=== PATIENT | female | born 1995 | race Caucasian/White ===

== ENCOUNTER 2024-12-17 23:48 | Emergency (ER) | payer MEDICAID, OTHER ==
[2024-12-18 01:45] LABS: #Basophils 0.05 10x3/uL (0.0-0.2); #Eosinophils 0.15 10x3/uL (0.0-0.5); #Monocytes 0.58 10x3/uL (0.0-1.1); #Neutrophils 6.56 10x3/uL (1.5-8.4); %Basophils 0.5 % (0.0-2.0); %Eosinophils 1.5 % (0.0-6.0); %Lymphocytes 24.6 % (18.0-47.0); %Monocytes 5.9 % (0.0-10.0); %Neutrophils 67.2 % (40.0-75.0); Hematocrit 39.7 % (34.9-44.5); Hemoglobin 13.7 g/dL (12.0-15.5); Mean Corpuscular Hemoglobin 29.5 pg (27.0-33.0); Mean Corpuscular Volume 85.4 fL (81.6-98.3); Platelet Count 283 10x3/uL (150-450); Red Blood Cell (RBC) Count 4.65 10x6/uL (3.90-5.03); White Blood Cell (WBC) Count 9.77 10x3/uL (3.5-10.5)
[2024-12-18 01:54] LABS: ALT (SGPT) 41 U/L (Less than 34); AST (SGOT) 34 U/L (11-34); Albumin 4.1 g/dL (3.1-4.5); Alkaline Phosphatase 69 U/L (40-110); Anion Gap 13 mmol/L (10-20); BUN (Urea Nitrogen) 13 mg/dL (7.0-18.7); Bilirubin, Total 0.3 mg/dL (0.3-1.2); Calc. Creatinine Clearance 0 mL/min (70-130); Calcium 8.8 mg/dL (7.8-10.44); Carbon Dioxide 24 mmol/L (22-29); Chloride 107 mmol/L (98-107); Globulin 3.2 g/dL (2.4-3.5); Glucose 63 mg/dL (70-105); Potassium 4.0 mmol/L (3.5-5.1); Sodium 140 mmol/L (136-145)
[2024-12-18 01:59] LABS: Troponin I Less than 0.010 ng/mL (< 0.028)
== END 2024-12-18 03:30 | disposition home or self-care (01) ==
LOC: CSHERS 23:48
DX: R07.89 Other chest pain (principal)
CPT/HCPCS: 71045; 80053; 83880; 84484; 85025; 93005

== ENCOUNTER 2025-02-05 18:45 | Observation (INO) | payer MEDICAID, OTHER ==
[2025-02-05 20:19] LABS: ALT (SGPT) 38 U/L (Less than 34); AST (SGOT) 32 U/L (11-34); Albumin 3.7 g/dL (3.1-4.5); Alkaline Phosphatase 64 U/L (40-110); Anion Gap 11 mmol/L (10-20); BUN (Urea Nitrogen) 14 mg/dL (7.0-18.7); Bilirubin, Total 0.4 mg/dL (0.3-1.2); Calc. Creatinine Clearance 0 mL/min (70-130); Calcium 8.6 mg/dL (7.8-10.44); Carbon Dioxide 24 mmol/L (22-29); Chloride 108 mmol/L (98-107); Globulin 3.0 g/dL (2.4-3.5); Glucose 86 mg/dL (70-105); Potassium 4.1 mmol/L (3.5-5.1); Sodium 139 mmol/L (136-145)
[2025-02-05 20:20] LABS: BHCG - Serum Negative (NEGATIVE); Pregs Control Background? CLEAR/WHITE (CLR/WHITE); Pregs Control Bar Appear? YES (CONTROL BAR)
[2025-02-05 20:23] LABS: Troponin I Less than 0.010 ng/mL (< 0.028)
[2025-02-05 20:24] LABS: #Basophils Less than 0.03 10x3/uL (0.0-0.2); #Eosinophils 0.17 10x3/uL (0.0-0.5); #Monocytes 0.51 10x3/uL (0.0-1.1); #Neutrophils 4.21 10x3/uL (1.5-8.4); %Basophils 0.3 % (0.0-2.0); %Eosinophils 2.2 % (0.0-6.0); %Lymphocytes 35.7 % (18.0-47.0); %Monocytes 6.6 % (0.0-10.0); %Neutrophils 54.9 % (40.0-75.0); Hematocrit 38.1 % (34.9-44.5); Hemoglobin 12.7 g/dL (12.0-15.5); Mean Corpuscular Hemoglobin 28.8 pg (27.0-33.0); Mean Corpuscular Volume 86.4 fL (81.6-98.3); Platelet Count 243 10x3/uL (150-450); Red Blood Cell (RBC) Count 4.41 10x6/uL (3.90-5.03); White Blood Cell (WBC) Count 7.67 10x3/uL (3.5-10.5)
[2025-02-05 20:24] LABS: Magnesium 1.7 mg/dL (1.6-2.6)
[2025-02-05] MEDS ORDERED: Senokot S 8.6-50 MG TAB PO PRN (23:58)
[2025-02-05] MEDS ORDERED: Calcium Carbonate 500 MG ChewTAB PO PRN (23:58)
[2025-02-05] MEDS ORDERED: Acetaminophen 325 MG TAB PO PRN (23:58)
[2025-02-05] MEDS ORDERED: Ondansetron PF 4 MG/2 ML Vial IVP PRN (23:58)
[2025-02-05] MEDS ORDERED: Guaifenesin DM 100-10/5 ML UDCUP PO PRN (23:58)
[2025-02-06 00:59] VITALS: BMI 41.4
[2025-02-06 06:37] LABS: Platelet Count 235.0 10x3/uL (150-450)
[2025-02-06 06:48] LABS: D-Dimer Test 0.47 mcg/mL (0.19-0.50); INR-International Normal Ratio 0.9; PTT 29.1 sec (22.0-33.0); Prothrombin Time 10.4 sec (9.5-12.1)
[2025-02-06 06:51] LABS: D-Dimer Test 0.48 mcg/mL (0.19-0.50); Fibrinogen 286.0 mg/dL (220-504); INR-International Normal Ratio 0.9; PTT 29.2 sec (22.0-33.0); Prothrombin Time 10.4 sec (9.5-12.1)
[2025-02-06 06:52] LABS: Cardiac Risk 4.3 (Less than 4.5); Cholesterol 111.0 mg/dl (< 200 Desired); HDL Cholesterol 26.0 mg/dL (>60 Neg Risk); LDL Cholesterol, Calculated 35.0 mg/dL; Triglycerides 250.0 mg/dL (Less than 150)
[2025-02-06 06:58] LABS: Troponin I Less than 0.010 ng/mL (< 0.028)
[2025-02-06 07:13] LABS: Thyroid Stimulating Hormone 2.4559 uIU/mL (0.35-4.94)
[2025-02-06] MEDS: Aspirin 81 mg Enteric Coated Tablet PO SCH (09:24)
[2025-02-06] MEDS: Enoxaparin 40 MG (0.4 mL) SYRINGE SC SCH (09:24)
[2025-02-06 13:57] LABS: Vitamin B12 317.0 pg/mL (211-911)
[2025-02-06 17:45] VITALS: BP 144/72; TEMP 98.6
[2025-02-06] MEDS ORDERED: Rosuvastatin 10 MG TAB PO SCH (21:00)
[2025-02-09 12:11] LABS: EliA APS New Method **** NEW METHOD ****; beta-2-Glycoprotein I IgA Ab 2.6 U/mL (<7 Negative); beta-2-Glycoprotein I IgG Ab 1.4 U/mL (<7 Negative); beta-2-Glycoprotein I IgM Abs Less than 2.4 U/mL (<7 Negative)
== END 2025-02-06 18:10 | disposition home or self-care (01) ==
LOC: CSHERS 18:45 → CSHTELE 23:53
PROVIDERS: ADMIT Student in an Organized Health Care Education/Training Program; ATTEND Student in an Organized Health Care Education/Training Program
DX: G45.9 Transient cerebral ischemic attack, unspecified (principal); L40.9 Psoriasis, unspecified; E66.01 Morbid (severe) obesity due to excess calories; Z68.41 Body mass index [BMI] 40.0-44.9, adult; Z79.82 Long term (current) use of aspirin
CPT/HCPCS: 36415; 70450; 70544; 70549; 70551; 71045; 80053; 80061; 81240; 81241; 82607; 83036; 83090; 83735; 84443; 84484; 84703; 85025; 85049; 85300; 85303; 85306; 85307; 85362; 85379; 85384; 85598; 85610; 85613; 85730; 86146; 86147; 93005; 93306; 93880; 94760; 96372; G0378; J1650

== ENCOUNTER 2025-05-04 14:13 | Emergency (ER) | payer MEDICAID ==
[2025-05-04] MEDS ORDERED: dilTIAZem 25 MG/5 ML VIAL ONE ×2 (14:59→15:40)
[2025-05-04 15:02] LABS: #Basophils 0.04 10x3/uL (0.0-0.2); #Eosinophils 0.22 10x3/uL (0.0-0.5); #Monocytes 0.48 10x3/uL (0.0-1.1); #Neutrophils 5.70 10x3/uL (1.5-8.4); %Basophils 0.4 % (0.0-2.0); %Eosinophils 2.3 % (0.0-6.0); %Lymphocytes 32.0 % (18.0-47.0); %Monocytes 5.1 % (0.0-10.0); %Neutrophils 60.0 % (40.0-75.0); Hematocrit 42.1 % (34.9-44.5); Hemoglobin 14.5 g/dL (12.0-15.5); Mean Corpuscular Hemoglobin 29.1 pg (27.0-33.0); Mean Corpuscular Volume 84.4 fL (81.6-98.3); Platelet Count 296 10x3/uL (150-450); Red Blood Cell (RBC) Count 4.99 10x6/uL (3.90-5.03); White Blood Cell (WBC) Count 9.50 10x3/uL (3.5-10.5)
[2025-05-04 15:15] LABS: ALT (SGPT) 55 U/L (Less than 34); AST (SGOT) 35 U/L (11-34); Albumin 3.8 g/dL (3.1-4.5); Alkaline Phosphatase 73 U/L (40-110); Anion Gap 12 mmol/L (10-20); BUN (Urea Nitrogen) 13 mg/dL (7.0-18.7); Bilirubin, Total 0.5 mg/dL (0.3-1.2); Calc. Creatinine Clearance 0 mL/min (70-130); Calcium 8.8 mg/dL (7.8-10.44); Carbon Dioxide 22 mmol/L (22-29); Chloride 109 mmol/L (98-107); Globulin 3.1 g/dL (2.4-3.5); Glucose 113 mg/dL (70-105); Magnesium 1.9 mg/dL (1.6-2.6); Potassium 4.0 mmol/L (3.5-5.1); Sodium 139 mmol/L (136-145)
[2025-05-04 15:21] LABS: Troponin I Less than 0.010 ng/mL (< 0.028)
[2025-05-04 15:40] LABS: BHCG - Serum Negative (NEGATIVE); Pregs Control Background? CLEAR/WHITE (CLR/WHITE); Pregs Control Bar Appear? YES (CONTROL BAR)
[2025-05-04] MEDS ORDERED: Etomidate 40 MG (20 mL) VIAL ONE (18:00)
== END 2025-05-04 19:25 | disposition home or self-care (01) ==
LOC: CSHERS 14:13
DX: I48.91 Unspecified atrial fibrillation (principal); Z86.73 Personal history of transient ischemic attack (TIA), and cerebral infarction without residual deficits
CPT/HCPCS: 36415; 71045; 80053; 83735; 83880; 84484; 84703; 85025; 92960; 93005; 93010; 94760; 96374; 96376